=== PATIENT | male | born 1960 | race Caucasian/White ===

== ENCOUNTER 2018-04-08 20:10 | Inpatient (IN) | payer MEDICAID, SELFPAY ==
[~2018-04-08 20:10] MED LIST: ACETAMINOPHEN TAB 650MG DOSE (2X325MG) PO; ONDANSETRON 4MG/2ML VIAL (J2405) IV
[2018-04-08] MEDS: LR 1,000 ML IV (21:04)
[2018-04-08] MEDS: MORPHINE 4 MG/ML 1ML VIAL/SYRINGE (J2270) IV ×2 (21:04→23:33)
[2018-04-08] MEDS: amLODIPine 10 MG TAB PO (21:55)
[2018-04-09] MEDS: NORCO, ANEXSIA 5/325MG TABLET (HYDROcodone/ACETAMINOPHEN) PO ×2 (01:52→12:38)
[2018-04-09] MEDS: cloNIDine HCL 0.2 MG/24 HR PATCH TOP (01:53)
[2018-04-09] MEDS: LR 1,000 ML IV ×3 (04:49→20:08)
[2018-04-09] MEDS: MORPHINE 4 MG/ML 1ML VIAL/SYRINGE (J2270) IV ×5 (04:50→20:09)
[2018-04-09 08:45] LABS: BASO % 0.4 % (0.0-1.0); EOS # 0.1 10^3/uL (0.0-0.50); EOS % 1.5 % (0.0-3.0); HEMATOCRIT 44.1 % (42.0-52.0); HEMOGLOBIN 15.2 g/dl (13.5-17.5); IMMATURE GRANULOCYTE % 0.1 % (0-3.0); LYMPH # 1.3 10^3/uL (1.5-4.5); LYMPH % 17.7 % (24.0-44.0); MEAN CORPUSCULAR HEMOGLOBIN 33.1 pg (27.0-33.0); MEAN CORPUSCULAR HGB CONC 34.5 g/dl (32.0-36.5); MEAN CORPUSCULAR VOLUME 96.1 fl (80.0-96.0); MONO % 13.7 % (0.0-5.0); NEUTROPHILS # 5.1 10^3/uL (1.8-7.7); NEUTROPHILS % 66.6 % (36.0-66.0); PLATELET COUNT, AUTOMATED 210 10^3/uL (150-450); RED BLOOD COUNT 4.59 10^6/uL (4.30-6.10); RED CELL DISTRIBUTION WIDTH 12.5 % (11.5-14.5); WHITE BLOOD COUNT 7.6 10^3/uL (4.0-10.0)
[2018-04-09 09:01] LABS: ANION GAP 6 MEQ/L (8-16); BLOOD UREA NITROGEN 9 MG/DL (7-18); CALCIUM LEVEL 8.7 MG/DL (8.5-10.1); CARBON DIOXIDE LEVEL 30 MEQ/L (21-32); CHLORIDE LEVEL 101 MEQ/L (98-107); CREATININE FOR GFR 0.58 MG/DL (0.70-1.30); GLOMERULAR FILTRATION RATE > 60.0 (>56); GLUCOSE, FASTING 90 MG/DL (70-100); SODIUM LEVEL 137 MEQ/L (136-145)
[2018-04-09 09:05] LABS: LACTIC ACID SEPSIS PROTOCOL 0.8 MMOL/L (0.4-2.0)
[2018-04-09] MEDS: PANTOPRAZOLE 40MG INJ (PROTONIX) (C9113) IV (09:22)
[2018-04-09] MEDS: amLODIPine 10 MG TAB PO (09:23)
[2018-04-09] MEDS: ENOXAPARIN 40 MG/0.4 ML SYRINGE (J1650) SC (09:24)
[2018-04-09] MEDS: MIRALAX *UNIT DOSE* 17GM PACKET PO (12:37)
[2018-04-09] MEDS: BISACODYL 10 MG SUPP PR (12:37)
[2018-04-09] MEDS: DEXTROMETHORPHAN 60MG/10ML SUSP 90ML BTL(DELSYM) PO ×2 (13:45→20:09)
[2018-04-10] MEDS: LR 1,000 ML IV ×3 (05:17→21:48)
[2018-04-10] MEDS: NORCO, ANEXSIA 5/325MG TABLET (HYDROcodone/ACETAMINOPHEN) PO ×3 (05:17→20:32)
[2018-04-10] MEDS: MORPHINE 4 MG/ML 1ML VIAL/SYRINGE (J2270) IV ×3 (08:44→16:26)
[2018-04-10] MEDS: DEXTROMETHORPHAN 60MG/10ML SUSP 90ML BTL(DELSYM) PO ×2 (08:45→20:30)
[2018-04-10] MEDS: amLODIPine 10 MG TAB PO (08:49)
[2018-04-10] MEDS: PANTOPRAZOLE 40MG INJ (PROTONIX) (C9113) IV (08:49)
[2018-04-10] MEDS: ENOXAPARIN 40 MG/0.4 ML SYRINGE (J1650) SC (08:50)
[2018-04-11] MEDS: LR 1,000 ML IV ×3 (02:20→19:00)
[2018-04-11] MEDS: NORCO, ANEXSIA 5/325MG TABLET (HYDROcodone/ACETAMINOPHEN) PO ×2 (06:18→11:22)
[2018-04-11 06:58] LABS: BASO % 0.4 % (0.0-1.0); EOS # 0.1 10^3/uL (0.0-0.50); EOS % 1.5 % (0.0-3.0); HEMATOCRIT 42.5 % (42.0-52.0); HEMOGLOBIN 14.9 g/dl (13.5-17.5); IMMATURE GRANULOCYTE % 0.1 % (0-3.0); LYMPH % 14.7 % (24.0-44.0); MEAN CORPUSCULAR HGB CONC 35.1 g/dl (32.0-36.5); MEAN CORPUSCULAR VOLUME 94.2 fl (80.0-96.0); MONO # 1.1 10^3/uL (0.0-0.8); MONO % 16.3 % (0.0-5.0); NEUTROPHILS # 4.5 10^3/uL (1.8-7.7); PLATELET COUNT, AUTOMATED 226 10^3/uL (150-450); RED BLOOD COUNT 4.51 10^6/uL (4.30-6.10); RED CELL DISTRIBUTION WIDTH 12.1 % (11.5-14.5); WHITE BLOOD COUNT 6.7 10^3/uL (4.0-10.0)
[2018-04-11 07:18] LABS: ANION GAP 11 MEQ/L (8-16); BLOOD UREA NITROGEN 8 MG/DL (7-18); CALCIUM LEVEL 8.9 MG/DL (8.5-10.1); CARBON DIOXIDE LEVEL 29 MEQ/L (21-32); CHLORIDE LEVEL 94 MEQ/L (98-107); CREATININE FOR GFR 0.52 MG/DL (0.70-1.30); GLOMERULAR FILTRATION RATE > 60.0 (>56); GLUCOSE, FASTING 60 MG/DL (70-100); POTASSIUM SERUM 3.6 MEQ/L (3.5-5.1); SODIUM LEVEL 134 MEQ/L (136-145)
[2018-04-11] MEDS ORDERED: DEXTROSE 50% 50 ML SYRINGE IV (09:00)
[2018-04-11] MEDS: DEXTROMETHORPHAN 60MG/10ML SUSP 90ML BTL(DELSYM) PO ×2 (09:15→21:37)
[2018-04-11] MEDS: amLODIPine 10 MG TAB PO (09:15)
[2018-04-11] MEDS: PANTOPRAZOLE 40MG INJ (PROTONIX) (C9113) IV (09:16)
[2018-04-11] MEDS: KCL 20MEQ IN D5/0.45NS 1000ML 1,000 ML IV ×2 (09:21→20:20)
[2018-04-11] MEDS: ENOXAPARIN 40 MG/0.4 ML SYRINGE (J1650) SC (10:19)
[2018-04-11 11:49] LABS: BEDSIDE GLUCOSE 96 MG/DL (70-105)
[2018-04-11] MEDS: ceFAZolin 2 GM/D5W 50 ML IV BAG (J0690 PER 500MG) As Ordered (16:59)
[2018-04-11] MEDS ORDERED: METOCLOPRAMIDE INJ 10MG/2ML VIAL (J2765) IV (17:00)
[2018-04-11] MEDS: LIDOCAINE 1% SDV INJ 30 ML VIAL As Ordered (17:05)
[2018-04-11] MEDS: BUPIVACAINE HCL 0.25% 30 ML VIAL As Ordered (17:05)
[2018-04-11] MEDS ORDERED: PROPOFOL 200 MG/20 ML VIAL As Ordered (17:26)
[2018-04-11] MEDS ORDERED: LIDOCAINE 2% INJ 100 MG/5 ML SDV (FOR ANES.) As Ordered (17:26)
[2018-04-11] MEDS ORDERED: fentaNYL 250 MCG/5 ML INJECTION (J3010) As Ordered (17:26)
[2018-04-11] MEDS ORDERED: MIDAZOLAM INJ 2 MG/2 ML VIAL (J2250) As Ordered (17:26)
[2018-04-11] MEDS ORDERED: ROCURONIUM BROMIDE 50 MG/5 ML VIAL As Ordered ×2 (17:26→17:49)
[2018-04-11] MEDS ORDERED: ONDANSETRON 4MG/2ML VIAL (J2405) As Ordered (17:27)
[2018-04-11] MEDS ORDERED: dexameTHASONE 4 MG/ML 1ML VIAL (J1100) As Ordered ×2 (17:27)
[2018-04-11] MEDS ORDERED: GLYCOPYRROLATE INJ 0.2 MG/ML 2 ML VIAL As Ordered (17:43)
[2018-04-11] MEDS ORDERED: NEOSTIGMINE 10 MG/10 ML VIAL (J2710) As Ordered (17:43)
[2018-04-11] MEDS ORDERED: fentaNYL 100 MCG/2 ML INJECTION (J3010) As Ordered (18:48)
[2018-04-11] MEDS: fentaNYL 100 MCG/2 ML INJECTION (J3010) IV ×3 (18:50→19:11)
[2018-04-11] MEDS ORDERED: hydrALAZINE INJ 20 MG/ML VIAL IV (19:00)
[2018-04-11] MEDS ORDERED: ONDANSETRON 4MG/2ML VIAL (J2405) IV (19:00)
[2018-04-11] MEDS ORDERED: MORPHINE 4 MG/ML 1ML VIAL/SYRINGE (J2270) As Ordered (19:22)
[2018-04-11] MEDS: MORPHINE 10 MG/ML 1ML VIAL (J2270) IV ×2 (19:25→19:35)
[2018-04-11] MEDS ORDERED: KCL 20MEQ IN D5/.45NACL 1000ML As Ordered (19:54)
[2018-04-11 19:59] LABS: BEDSIDE GLUCOSE 92 MG/DL (70-105)
[2018-04-12 00:04] LABS: BEDSIDE GLUCOSE 154 MG/DL (70-105)
[2018-04-12] MEDS: MORPHINE 4 MG/ML 1ML VIAL/SYRINGE (J2270) IV (00:09)
[2018-04-12] MEDS: KCL 20MEQ IN D5/0.45NS 1000ML 1,000 ML IV ×2 (05:51→20:23)
[2018-04-12 06:57] LABS: BASO % 0.2 % (0.0-1.0); EOS % 0.2 % (0.0-3.0); HEMATOCRIT 43.5 % (42.0-52.0); HEMOGLOBIN 15.3 g/dl (13.5-17.5); IMMATURE GRANULOCYTE % 0.4 % (0-3.0); LYMPH # 0.6 10^3/uL (1.5-4.5); LYMPH % 11.7 % (24.0-44.0); MEAN CORPUSCULAR HEMOGLOBIN 32.8 pg (27.0-33.0); MEAN CORPUSCULAR HGB CONC 35.2 g/dl (32.0-36.5); MEAN CORPUSCULAR VOLUME 93.1 fl (80.0-96.0); MONO # 0.7 10^3/uL (0.0-0.8); MONO % 14.2 % (0.0-5.0); NEUTROPHILS # 3.8 10^3/uL (1.8-7.7); NEUTROPHILS % 73.3 % (36.0-66.0); PLATELET COUNT, AUTOMATED 236 10^3/uL (150-450); RED BLOOD COUNT 4.67 10^6/uL (4.30-6.10); RED CELL DISTRIBUTION WIDTH 11.9 % (11.5-14.5); WHITE BLOOD COUNT 5.2 10^3/uL (4.0-10.0)
[2018-04-12 07:09] LABS: ANION GAP 6 MEQ/L (8-16); BLOOD UREA NITROGEN 9 MG/DL (7-18); CALCIUM LEVEL 8.6 MG/DL (8.5-10.1); CARBON DIOXIDE LEVEL 31 MEQ/L (21-32); CHLORIDE LEVEL 98 MEQ/L (98-107); CREATININE FOR GFR 0.65 MG/DL (0.70-1.30); GLOMERULAR FILTRATION RATE > 60.0 (>56); GLUCOSE, FASTING 151 MG/DL (70-100); POTASSIUM SERUM 4.5 MEQ/L (3.5-5.1); SODIUM LEVEL 135 MEQ/L (136-145)
[2018-04-12] MEDS: ENOXAPARIN 40 MG/0.4 ML SYRINGE (J1650) SC (09:46)
[2018-04-12] MEDS: PANTOPRAZOLE 40MG INJ (PROTONIX) (C9113) IV (09:46)
[2018-04-12] MEDS: amLODIPine 10 MG TAB PO (09:47)
[2018-04-12] MEDS: NORCO, ANEXSIA 5/325MG TABLET (HYDROcodone/ACETAMINOPHEN) PO ×3 (10:54→20:23)
[2018-04-12] MEDS: DEXTROMETHORPHAN 60MG/10ML SUSP 90ML BTL(DELSYM) PO ×2 (12:19→20:23)
[2018-04-12] MEDS: IPRATROPIUM 0.5MG/ALBUTEROL 2.5MG INH SOL UD 3ML (DUONEB)(J7620) NEB ×2 (15:43→20:47)
[2018-04-12 18:18] LABS: BEDSIDE GLUCOSE 117 MG/DL (70-105)
[2018-04-12 23:43] LABS: BEDSIDE GLUCOSE 135 MG/DL (70-105)
[2018-04-13] MEDS: MORPHINE 4 MG/ML 1ML VIAL/SYRINGE (J2270) IV (00:12)
[2018-04-13 06:52] LABS: BASO % 0.3 % (0.0-1.0); EOS # 0.1 10^3/uL (0.0-0.50); EOS % 2.1 % (0.0-3.0); HEMATOCRIT 40.5 % (42.0-52.0); HEMOGLOBIN 14.1 g/dl (13.5-17.5); IMMATURE GRANULOCYTE % 0.3 % (0-3.0); LYMPH # 2.2 10^3/uL (1.5-4.5); LYMPH % 32.8 % (24.0-44.0); MEAN CORPUSCULAR HEMOGLOBIN 32.9 pg (27.0-33.0); MEAN CORPUSCULAR HGB CONC 34.8 g/dl (32.0-36.5); MEAN CORPUSCULAR VOLUME 94.6 fl (80.0-96.0); MONO # 1.1 10^3/uL (0.0-0.8); MONO % 16.9 % (0.0-5.0); NEUTROPHILS # 3.1 10^3/uL (1.8-7.7); NEUTROPHILS % 47.6 % (36.0-66.0); PLATELET COUNT, AUTOMATED 259 10^3/uL (150-450); RED BLOOD COUNT 4.28 10^6/uL (4.30-6.10); RED CELL DISTRIBUTION WIDTH 12.2 % (11.5-14.5); WHITE BLOOD COUNT 6.6 10^3/uL (4.0-10.0)
[2018-04-13 07:11] LABS: ANION GAP 0 MEQ/L (8-16); BLOOD UREA NITROGEN 5 MG/DL (7-18); CALCIUM LEVEL 8.4 MG/DL (8.5-10.1); CARBON DIOXIDE LEVEL 33 MEQ/L (21-32); CHLORIDE LEVEL 106 MEQ/L (98-107); CREATININE FOR GFR 0.64 MG/DL (0.70-1.30); GLOMERULAR FILTRATION RATE > 60.0 (>56); GLUCOSE, FASTING 112 MG/DL (70-100); POTASSIUM SERUM 4.7 MEQ/L (3.5-5.1); SODIUM LEVEL 139 MEQ/L (136-145)
[2018-04-13] MEDS: MOM 30ML SUSPENSION UDC PO (08:20)
[2018-04-13] MEDS: amLODIPine 10 MG TAB PO (08:21)
[2018-04-13] MEDS: ENOXAPARIN 40 MG/0.4 ML SYRINGE (J1650) SC (08:21)
[2018-04-13] MEDS: PANTOPRAZOLE 40MG INJ (PROTONIX) (C9113) IV (08:21)
[2018-04-13] MEDS: DEXTROMETHORPHAN 60MG/10ML SUSP 90ML BTL(DELSYM) PO ×2 (08:22→20:56)
[2018-04-13] MEDS: NORCO, ANEXSIA 5/325MG TABLET (HYDROcodone/ACETAMINOPHEN) PO ×3 (09:55→21:37)
[2018-04-13] MEDS: LISINOPRIL 10 MG TAB PO ×2 (11:28→20:12)
[2018-04-13 12:58] LABS: BEDSIDE GLUCOSE 103 MG/DL (70-105)
[2018-04-13] MEDS: NICOTINE 21MG/24HR 1 EA TRANSDERMAL TD (17:10)
[2018-04-14] MEDS: NORCO, ANEXSIA 5/325MG TABLET (HYDROcodone/ACETAMINOPHEN) PO (01:44)
[2018-04-14 07:31] LABS: BASO % 0.3 % (0.0-1.0); EOS # 0.1 10^3/uL (0.0-0.50); EOS % 2.1 % (0.0-3.0); HEMATOCRIT 46.1 % (42.0-52.0); HEMOGLOBIN 15.5 g/dl (13.5-17.5); IMMATURE GRANULOCYTE % 0.3 % (0-3.0); LYMPH # 0.8 10^3/uL (1.5-4.5); LYMPH % 12.7 % (24.0-44.0); MEAN CORPUSCULAR HGB CONC 33.6 g/dl (32.0-36.5); MEAN CORPUSCULAR VOLUME 98.1 fl (80.0-96.0); MONO # 0.7 10^3/uL (0.0-0.8); MONO % 10.9 % (0.0-5.0); NEUTROPHILS # 4.6 10^3/uL (1.8-7.7); NEUTROPHILS % 73.7 % (36.0-66.0); PLATELET COUNT, AUTOMATED 255 10^3/uL (150-450); RED CELL DISTRIBUTION WIDTH 12.4 % (11.5-14.5); WHITE BLOOD COUNT 6.2 10^3/uL (4.0-10.0)
[2018-04-14 07:40] LABS: ANION GAP 7 MEQ/L (8-16); BLOOD UREA NITROGEN 9 MG/DL (7-18); CALCIUM LEVEL 8.3 MG/DL (8.5-10.1); CARBON DIOXIDE LEVEL 30 MEQ/L (21-32); CHLORIDE LEVEL 102 MEQ/L (98-107); CREATININE FOR GFR 0.59 MG/DL (0.70-1.30); GLOMERULAR FILTRATION RATE > 60.0 (>56); GLUCOSE, FASTING 85 MG/DL (70-100); POTASSIUM SERUM 3.9 MEQ/L (3.5-5.1); SODIUM LEVEL 139 MEQ/L (136-145)
[2018-04-14] MEDS: NICOTINE 21MG/24HR 1 EA TRANSDERMAL TD (08:56)
[2018-04-14] MEDS: DEXTROMETHORPHAN 60MG/10ML SUSP 90ML BTL(DELSYM) PO (08:56)
[2018-04-14] MEDS: amLODIPine 10 MG TAB PO (08:56)
[2018-04-14] MEDS: ENOXAPARIN 40 MG/0.4 ML SYRINGE (J1650) SC (08:57)
[2018-04-14] MEDS: LISINOPRIL 20 MG TAB PO (08:57)
== END 2018-04-14 11:30 | disposition home or self-care (01) | DRG 224 ==
LOC: M MSPAV 20:10 → M MS4PR 04-11 16:00
PROC: 0DN84ZZ Release Small Intestine, Percutaneous Endoscopic Approach (ICD-10-PCS; principal; 2018-04-11 08:00)
DX: K56.51 Intestinal adhesions [bands], with partial obstruction (principal); J18.9 Pneumonia, unspecified organism; R04.2 Hemoptysis; J43.9 Emphysema, unspecified; R91.1 Solitary pulmonary nodule; I10 Essential (primary) hypertension; F10.10 Alcohol abuse, uncomplicated; Z79.899 Other long term (current) drug therapy; F17.200 Nicotine dependence, unspecified, uncomplicated

== ENCOUNTER 2018-05-03 06:25 | Day surgery (SDC) | payer MEDICAID ==
[2018-05-03] MEDS ORDERED: LR 1,000 ML IV ×2 (06:30)
[2018-05-03] MEDS ORDERED: LIDOCAINE 2% INJ 100 MG/5 ML SDV (FOR ANES.) As Ordered ×2 (07:16)
[2018-05-03] MEDS ORDERED: MIDAZOLAM INJ 2 MG/2 ML VIAL (J2250) As Ordered ×2 (07:16)
[2018-05-03] MEDS ORDERED: PROPOFOL 200 MG/20 ML VIAL As Ordered ×4 (07:16→07:56)
[2018-05-03] MEDS ORDERED: ROCURONIUM BROMIDE 50 MG/5 ML VIAL As Ordered ×2 (07:16)
[2018-05-03] MEDS ORDERED: fentaNYL 100 MCG/2 ML INJECTION (J3010) As Ordered ×2 (07:17)
[2018-05-03] MEDS ORDERED: dexameTHASONE 4 MG/ML 1ML VIAL (J1100) As Ordered ×2 (07:20)
[2018-05-03] MEDS: EPINEPHrine 1MG/10ML SYRINGE 1.5IN As Ordered ×2 (08:00)
[2018-05-03] MEDS: LIDOCAINE VISCOUS 2% SOLN 15ML UDC As Ordered ×2 (08:00)
[2018-05-03] MEDS: LIDOCAINE 1% MDV 20ML VIAL As Ordered ×2 (08:00)
[2018-05-03] MEDS: THROMBIN SOLN 5,000 UNITS VIAL As Ordered ×2 (08:00)
[2018-05-03] MEDS: CETACAINE SPRAY 5GM As Ordered ×2 (08:00)
[2018-05-03] MEDS ORDERED: ONDANSETRON 4MG/2ML VIAL (J2405) As Ordered ×2 (08:10)
[2018-05-03] MEDS: PHENYLEPHRINE 0.5% NASAL SPRAY 15 ML As Ordered ×2 (08:43)
== END 2018-05-03 09:20 | disposition home or self-care (01) ==
LOC: M SDC 06:25
DX: C34.11 Malignant neoplasm of upper lobe, right bronchus or lung (principal); R04.2 Hemoptysis; R91.8 Other nonspecific abnormal finding of lung field; I10 Essential (primary) hypertension; F17.210 Nicotine dependence, cigarettes, uncomplicated; J44.9 Chronic obstructive pulmonary disease, unspecified; Z79.899 Other long term (current) drug therapy
CPT/HCPCS: 31623

== ENCOUNTER → 2018-05-12 | Outpatient (CLI) | payer MEDICAID | LOC: M CARPUL 10:19 | DX: C34.11 Malignant neoplasm of upper lobe, right bronchus or lung (principal) | CPT/HCPCS: 94060 ==

== ENCOUNTER → 2018-05-24 | Outpatient (CLI) | payer OTHER, MEDICAID | LOC: M PLARAD 14:41 | DX: C34.91 Malignant neoplasm of unspecified part of right bronchus or lung (principal) | CPT/HCPCS: 78815 ==

== ENCOUNTER → 2018-06-08 | Outpatient (REF) | payer OTHER ==
[2018-06-08 13:41] LABS: PARTIAL THROMBOPLASTIN TIME 32.3 SECONDS (25.4-37.6); PROTHROMBIN TIME 12.3 SECONDS (12.1-14.4)
== END ==
LOC: M LAB REF 13:08
DX: C34.90 Malignant neoplasm of unspecified part of unspecified bronchus or lung (principal)
CPT/HCPCS: 85610

== ENCOUNTER → 2018-06-15 | Outpatient (CLI) | payer OTHER ==
[~2018-06-15] MED LIST changes: -ACETAMINOPHEN TAB 650MG DOSE (2X325MG) PO; -ONDANSETRON 4MG/2ML VIAL (J2405) IV; +PROHANCE 279.3MG/ML 15ML VIAL (A9576) As Ordered
== END ==
LOC: M RAD 17:00
DX: C34.90 Malignant neoplasm of unspecified part of unspecified bronchus or lung (principal)
CPT/HCPCS: A9576

== ENCOUNTER → 2018-06-17 | Outpatient (CLI) | payer OTHER | LOC: M ONCR 10:21 | DX: C34.11 Malignant neoplasm of upper lobe, right bronchus or lung (principal) | CPT/HCPCS: 99201 ==

== ENCOUNTER 2018-06-24 10:31 | Day surgery (SDC) | payer OTHER ==
[2018-06-24] MEDS ORDERED: LR 1,000 ML IV (10:45)
[2018-06-24] MEDS ORDERED: LIDOCAINE 2% INJ 100 MG/5 ML SDV (FOR ANES.) As Ordered (12:51)
[2018-06-24] MEDS ORDERED: PROPOFOL 200 MG/20 ML VIAL As Ordered ×2 (12:51→13:37)
[2018-06-24] MEDS ORDERED: fentaNYL 100 MCG/2 ML INJECTION (J3010) As Ordered (12:52)
[2018-06-24] MEDS ORDERED: MIDAZOLAM INJ 2 MG/2 ML VIAL (J2250) As Ordered ×2 (12:53→13:27)
[2018-06-24] MEDS: MUPIROCIN 2% OINT 22 GM TUBE TOP (13:25)
[2018-06-24] MEDS: LIDOCAINE 1% MDV 20ML VIAL As Ordered (13:38)
[2018-06-24] MEDS: HEPARIN SOD (PORCINE) 5000 UNITS/ML VIAL As Ordered (13:40)
[2018-06-24] MEDS ORDERED: ONDANSETRON 4MG/2ML VIAL (J2405) As Ordered (13:48)
[2018-06-24] MEDS ORDERED: KETOROLAC 60 MG/2 ML VIAL (J1885) As Ordered (13:48)
[2018-06-24] MEDS: BUPIVACAINE LIPOSOME/PF 1.3% 20 ML VIAL (13.3MG/ML)(EXPAREL) As Ordered (13:58)
== END 2018-06-24 14:45 | disposition home or self-care (01) ==
LOC: M SDC 10:31
DX: C34.11 Malignant neoplasm of upper lobe, right bronchus or lung (principal); Z45.2 Encounter for adjustment and management of vascular access device; R04.2 Hemoptysis; J44.9 Chronic obstructive pulmonary disease, unspecified; I10 Essential (primary) hypertension; F17.218 Nicotine dependence, cigarettes, with other nicotine-induced disorders; Z79.899 Other long term (current) drug therapy
CPT/HCPCS: 36561

== ENCOUNTER 2018-06-29 10:00 | Outpatient (RCR) | payer OTHER | END 2018-07-03 | LOC: M ONCR 10:00 | DX: C34.01 Malignant neoplasm of right main bronchus (principal) | CPT/HCPCS: 77334 ==

== ENCOUNTER → 2018-06-30 | Outpatient (CLI) | payer OTHER | LOC: M SMT 11:06 | DX: C34.90 Malignant neoplasm of unspecified part of unspecified bronchus or lung (principal) | CPT/HCPCS: 71046 ==

== ENCOUNTER → 2018-06-30 | Outpatient (REF) | payer OTHER | LOC: M LAB REF 11:25 | DX: C34.90 Malignant neoplasm of unspecified part of unspecified bronchus or lung (principal) | CPT/HCPCS: 88300 ==

== ENCOUNTER 2018-07-03 20:10 | Inpatient (IN) | payer OTHER ==
[2018-07-03] MEDS: DOCUSATE SODIUM 100 MG CAP PO (21:00)
[2018-07-03] MEDS ORDERED: ONDANSETRON 4MG/2ML VIAL (J2405) IV (21:00)
[2018-07-03] MEDS ORDERED: ACETAMINOPHEN TAB 650MG DOSE (2X325MG) PO (21:00)
[2018-07-03] MEDS: NS 1,000 ML IV (21:26)
[2018-07-03 21:38] LABS: INR 0.98; PROTHROMBIN TIME 13.1 SECONDS (12.1-14.4)
[2018-07-03] MEDS: MORPHINE 4 MG/ML 1ML VIAL/SYRINGE (J2270) IV (21:41)
[2018-07-03] MEDS: IPRATROPIUM 0.5MG/ALBUTEROL 2.5MG INH SOL UD 3ML (DUONEB)(J7620) NEB (21:53)
[2018-07-03 21:58] LABS: TROPONIN I < 0.02 NG/ML (< 0.10)
[2018-07-03] MEDS: VANCOMYCIN HCL 1,000 MG, VIAL MATE ADAPTER 1 EACH in D5W 250 ML IV (22:32)
[2018-07-03] MEDS: methylPREDNISolone INJ 125 MG/2 ML VIAL (J2930) IV (22:33)
[2018-07-04] MEDS: CEFEPIME HCL 1 GM in D5W MINI-BAG PLUS 50 ML IV ×2 (00:09→14:24)
[2018-07-04 00:57] LABS: CREATININE FOR GFR 0.55 MG/DL (0.70-1.30); GLOMERULAR FILTRATION RATE > 60.0 (>56)
[2018-07-04] MEDS: IPRATROPIUM 0.5MG/ALBUTEROL 2.5MG INH SOL UD 3ML (DUONEB)(J7620) NEB ×6 (04:00→20:02)
[2018-07-04] MEDS: VANCOMYCIN HCL 1,000 MG, VIAL MATE ADAPTER 1 EACH in D5W 250 ML IV (04:02)
[2018-07-04] MEDS: MORPHINE 4 MG/ML 1ML VIAL/SYRINGE (J2270) IV ×2 (04:16→21:14)
[2018-07-04 04:39] LABS: HEMATOCRIT 39.3 % (42.0-52.0); HEMOGLOBIN 13.3 g/dl (13.5-17.5); MEAN CORPUSCULAR HEMOGLOBIN 32.5 pg (27.0-33.0); MEAN CORPUSCULAR HGB CONC 33.8 g/dl (32.0-36.5); MEAN CORPUSCULAR VOLUME 96.1 fl (80.0-96.0); PLATELET COUNT, AUTOMATED 342 10^3/uL (150-450); RED BLOOD COUNT 4.09 10^6/uL (4.30-6.10); RED CELL DISTRIBUTION WIDTH 13.2 % (11.5-14.5)
[2018-07-04 04:56] LABS: MAGNESIUM LEVEL 2.2 MG/DL (1.8-2.4)
[2018-07-04] MEDS: methylPREDNISolone INJ 125 MG/2 ML VIAL (J2930) IV ×2 (05:29→14:24)
[2018-07-04] MEDS: NS 1,000 ML IV (08:45)
[2018-07-04] MEDS: amLODIPine 10 MG TAB PO (08:45)
[2018-07-04] MEDS: DOCUSATE SODIUM 100 MG CAP PO ×2 (08:47→20:08)
[2018-07-04] MEDS: LevoFLOXacin IV 500 MG in APPROPRIATE DILUENT 1 EA IV (10:40)
[2018-07-04] MEDS ORDERED: ALBUTEROL 90 MCG/ACT 8GM HFA INHALER INH (18:15)
[2018-07-04] MEDS: LISINOPRIL 20 MG TAB PO (20:08)
[2018-07-04 22:13] LABS: INR 0.96; PROTHROMBIN TIME 12.9 SECONDS (12.1-14.4)
[2018-07-05] MEDS: MORPHINE 4 MG/ML 1ML VIAL/SYRINGE (J2270) IV ×2 (01:48→06:21)
[2018-07-05] MEDS: AZITHROMYCIN INJ 500 MG, VIAL MATE ADAPTER 1 EACH in D5W 250 ML IV (02:57)
[2018-07-05] MEDS: IPRATROPIUM 0.5MG/ALBUTEROL 2.5MG INH SOL UD 3ML (DUONEB)(J7620) NEB ×6 (07:18→23:46)
[2018-07-05 07:50] LABS: HEMATOCRIT 35.6 % (42.0-52.0); HEMOGLOBIN 12.2 g/dl (13.5-17.5); MEAN CORPUSCULAR HEMOGLOBIN 32.7 pg (27.0-33.0); MEAN CORPUSCULAR HGB CONC 34.3 g/dl (32.0-36.5); MEAN CORPUSCULAR VOLUME 95.4 fl (80.0-96.0); PLATELET COUNT, AUTOMATED 328 10^3/uL (150-450); RED BLOOD COUNT 3.73 10^6/uL (4.30-6.10); WHITE BLOOD COUNT 14.8 10^3/uL (4.0-10.0)
[2018-07-05 08:02] LABS: MAGNESIUM LEVEL 2.4 MG/DL (1.8-2.4)
[2018-07-05 08:10] LABS: INR 0.98; PROTHROMBIN TIME 13.1 SECONDS (12.1-14.4)
[2018-07-05] MEDS: DOCUSATE SODIUM 100 MG CAP PO ×2 (08:39→20:22)
[2018-07-05] MEDS: predniSONE 20 MG TAB PO (08:39)
[2018-07-05] MEDS: amLODIPine 10 MG TAB PO (08:39)
[2018-07-05] MEDS: PERCOCET 5MG/325MG TAB PO ×3 (10:08→20:24)
[2018-07-05] MEDS: LISINOPRIL 20 MG TAB PO (20:23)
[2018-07-06] MEDS: PERCOCET 5MG/325MG TAB PO ×3 (00:25→12:55)
[2018-07-06] MEDS: AZITHROMYCIN INJ 500 MG, VIAL MATE ADAPTER 1 EACH in D5W 250 ML IV (00:25)
[2018-07-06] MEDS: IPRATROPIUM 0.5MG/ALBUTEROL 2.5MG INH SOL UD 3ML (DUONEB)(J7620) NEB ×3 (03:36→11:28)
[2018-07-06 07:43] LABS: HEMATOCRIT 40.3 % (42.0-52.0); HEMOGLOBIN 13.3 g/dl (13.5-17.5); MEAN CORPUSCULAR HEMOGLOBIN 32.2 pg (27.0-33.0); MEAN CORPUSCULAR VOLUME 97.6 fl (80.0-96.0); PLATELET COUNT, AUTOMATED 350 10^3/uL (150-450); RED BLOOD COUNT 4.13 10^6/uL (4.30-6.10); RED CELL DISTRIBUTION WIDTH 13.2 % (11.5-14.5)
[2018-07-06 07:58] LABS: MAGNESIUM LEVEL 2.3 MG/DL (1.8-2.4)
[2018-07-06] MEDS: amLODIPine 10 MG TAB PO (08:20)
[2018-07-06] MEDS: DOCUSATE SODIUM 100 MG CAP PO (08:20)
[2018-07-06] MEDS: predniSONE 20 MG TAB PO (08:21)
[2018-07-08 00:09] LABS: LEGIONELLA ANTIGEN URINE Negative (Negative)
== END 2018-07-06 14:22 | disposition home or self-care (01) | DRG 136 ==
LOC: M ICU 20:10 → M MS4PR 07-04 20:26
PROVIDERS: Hospitalist
DX: C34.90 Malignant neoplasm of unspecified part of unspecified bronchus or lung (principal); R78.81 Bacteremia; J44.9 Chronic obstructive pulmonary disease, unspecified; R04.2 Hemoptysis; I10 Essential (primary) hypertension; Z79.899 Other long term (current) drug therapy; F17.200 Nicotine dependence, unspecified, uncomplicated; Z66 Do not resuscitate

== ENCOUNTER → 2018-08-03 | Outpatient (RCR) | payer OTHER ==
--- NOTE | 2018-07-07 12:55 | RADONC ---
RADIATION ONCOLOGY PROGRESS NOTE DATE OF SERVICE: 07/05/2018 CHART NUMBER: [id number]. DIAGNOSIS: Right lung cancer. STAGE: IIIA, T4N1M0 versus stage IIIB, T4N2M0. ECOG PERFORMANCE STATUS : 1. PROGRESS NOTE: I apparently received an official consultation request on Mr. Wiley, which was sent to the old fax machine in the [facility]. I am well aware of Mr. Wiley, and we undertook a full history and physical consultation on 06/17/2018. Following that, the patient was brought in for CT simulation, which was undertaken without difficulty. Treatment planning for 3-D conformal therapy had also been completed and approved. The insurance authorizations were done. The patient has been brought down today for initiation of radiation and successfully underwent his first fraction of RT for a dose of 200 cGy. The patient tolerated his first fraction without difficulty. Radiation is scheduled to continue on a daily basis. REVIEW OF SYSTEMS: The patient's review of systems today is unchanged. PHYSICAL EXAMINATION: The patient's skin clearly shows no evidence of radiation change present, and the remainder of the physical is also unchanged. Thank you for submitting a request for consultation, although I would be happy to refer you to the consultation note done on 06/17/2018. As noted above, the patient is well-known to our department and is being seen on a daily basis. If I could be of any further assistance or provide you with any information, please feel free to contact us at any time. As always, with warm regards. Abraham RICO
--- NOTE | 2018-07-13 09:51 | RADONC ---
RADIATION ONCOLOGY PROGRESS NOTE DATE: 07/11/2018 CHART #: [id number] Mr. Wiley is presently at a dose of 1000 cGy to his right lung and is tolerating treatments quite well at this point with no complaints related to his radiation therapy. He is having no increased difficulty swallowing or breathing. REVIEW OF SYSTEMS: The patient's review of systems is noncontributory. Denies nausea, vomiting, fevers, chills, night sweats, diplopia, headaches, anxiety or depression, anorexia, weight loss, visual disturbances, chest pain, urinary or bowel difficulties, bone pain, or neurological problems. PHYSICAL EXAMINATION: The patient's skin is in good condition with no evidence of radiation change present. The remainder of his physical exam remains unchanged as well. Mr. Wiley is tolerating treatments quite well and radiation will continue as scheduled.
--- NOTE | 2018-07-19 08:44 | RADONC ---
RADIATION ONCOLOGY PROGRESS NOTE DATE: 07/18/2018 CHART NUMBER: [id number] Mr. Wiley is presently at a dose of 2000 cGy to his right lung and is complaining of pain upon swallowing that is keeping him up at night. Other than that, he is having no problems with his radiation. The patient's review of systems is positive for pain and difficulty sleeping but is otherwise noncontributory. Denies nausea, vomiting, fevers, chills, night sweats, diplopia, headaches, anxiety or depression, anorexia, weight loss, visual disturbances, chest pain, urinary or bowel difficulties, bone pain, or neurological problems. PHYSICAL EXAMINATION The patient's skin is in excellent condition with no evidence of moist or dry desquamation. The remainder of his physical exam remains unchanged. Mr. Wiley is tolerating treatments quite well and radiation will continue as scheduled. I have renewed his Percocet prescription for 5 mg / 325, I have given him 40 pills. The patient says he is using them just at night to sleep and this should last him through the end of treatment.
--- NOTE | 2018-07-26 11:03 | RADONC ---
RADIATION ONCOLOGY PROGRESS NOTE DATE: 07/25/2018 CHART NUMBER: [id number] Mr. Wiley is presently at dose of 3000 cGy to his right lung and continues to complain of pain requesting more pain pills. He tells me he is only using one at night, perhaps occasionally one in the morning to help him sleep. He has no other complaints at this time related to his radiation therapy or disease other than some nauseousness and loss of appetite. PHYSICAL EXAMINATION: The patient's skin is in excellent condition. His weight has actually increased total of 3 pounds since consultation. The remainder of his physical exam remains unchanged. I explained to the patient that I have already given him 60 Percocets in the past 2-1/2 weeks. He therefore is taking more than just one at night. I do not wish him to be in pain and therefore I have renewed his Percocets and given him 60 pills. I let him know that expected this last throughout the course of treatment. Radiation will continue as scheduled.
--- NOTE | 2018-08-02 09:56 | RADONC ---
RADIATION ONCOLOGY PROGRESS NOTE DATE: 08/01/2018 CHART NUMBER: [id number] Mr. Wiley, with a diagnosis of right lung carcinoma, is currently receiving local regional radiotherapy and is tolerating his therapy reasonably well at a dose of 4000 cGy of an anticipated 6800 cGy. REVIEW OF SYSTEMS He denies any nausea, vomiting, but does experience some minor odynophagia and dysphagia. His energy level is slightly diminished but he is still able to maintain most day-to-day activities without any alteration of his lifestyle. He has tried swallowing yogurt to ameliorate the minor dysphagia with no relief. EXAMINATION FINDINGS: Skin within the irradiated volume shows neither erythema nor desquamation. There is no palpable peripheral lymphadenopathy. Lungs are distant bilaterally. The remainder of the physical examination is unchanged. IMPRESSION: Tolerating therapy reasonably well. PLAN: Treatments to continue.
[~2018-08-03] MED LIST changes: +ACET1TAB55 PO; +AMLO10TA4 PO; +CEFU50TA PO; +DELS30LI4 PO; +IPRA0.00 INH; +IPRA0.00 NEB; +LIDO1SOL7 PO; +LISI-538 PO; +NEBUMIS2 XX; +NICO21PAT TD; +NORCOTAB PO; +ONDA8TAB7 PO; +PATIENT COMMENTS; +PERC5TAB12 PO; +PRED10PA2 PO; +PRED10TA2 PO; +PROC10TA4 PO; -PROHANCE 279.3MG/ML 15ML VIAL (A9576) As Ordered; +SUCR1SS PO; +SYMB16INH INH; +VENTAER INH
== END ==
LOC: M ONCR 07-05 14:30
PROVIDERS: ATTEND Radiology Radiation Oncology
DX: C34.01 Malignant neoplasm of right main bronchus (principal)

== ENCOUNTER 2018-08-04 10:27 | Outpatient (RCR) | payer OTHER | END 2018-09-02 | LOC: M ONCR 08-15 10:14 | DX: C34.01 Malignant neoplasm of right main bronchus (principal) | CPT/HCPCS: 77336 ==

== ENCOUNTER → 2018-08-17 | Outpatient (CLI) | payer OTHER ==
[~2018-08-17] MED LIST changes: -ACET1TAB55 PO; -AMLO10TA4 PO; -CEFU50TA PO; -DELS30LI4 PO; -IPRA0.00 INH; -IPRA0.00 NEB; +ISOVUE-370 76% 100ML VIAL (Q9967) As Ordered; -LIDO1SOL7 PO; -LISI-538 PO; -NEBUMIS2 XX; -NICO21PAT TD; -NORCOTAB PO; -ONDA8TAB7 PO; -PATIENT COMMENTS; -PERC5TAB12 PO; -PRED10PA2 PO; -PRED10TA2 PO; -PROC10TA4 PO; -SUCR1SS PO; -SYMB16INH INH; -VENTAER INH
== END ==
LOC: M RAD 16:50
DX: C34.90 Malignant neoplasm of unspecified part of unspecified bronchus or lung (principal); R13.10 Dysphagia, unspecified; J44.9 Chronic obstructive pulmonary disease, unspecified; J43.9 Emphysema, unspecified
CPT/HCPCS: Q9967

== ENCOUNTER → 2018-09-23 | Outpatient (CLI) | payer OTHER ==
[~2018-09-23] MED LIST changes: +ACET1TAB55 PO; +AMLO10TA5 PO; +CEFU50TA PO; +DELS30LI4 PO; +IPRA0.00 INH; +IPRA0.00 NEB; -ISOVUE-370 76% 100ML VIAL (Q9967) As Ordered; +LIDO1SOL7 PO; +LISI-538 PO; +NEBUMIS2 XX; +NICO21PAT TD; +NORCOTAB PO; +ONDA8TAB7 PO; +PATIENT COMMENTS; +PERC5TAB12 PO; +PRED10PA2 PO; +PRED10TA2 PO; +PROC10TA4 PO; +SUCR1SS PO; +SYMB16INH INH; +VENTAER INH
--- NOTE | 2018-09-24 08:24 | REP ---
Esophagram: Single contrast study. History: Odynophagia. Dysphasia. Status post chemo radiation therapy for lung carcinoma. Findings: The initial PA chest x-ray shows an [id number]-Tuwu catheter in place via the left side. Mediastinum is not widened. Heart size is normal. Lung frederick are clear. There are old healed rib fractures noted on the left. Degenerative changes are visible in the thoracic spine. There are clips in the left upper quadrant of the abdomen. Esophagram images demonstrate no oral pharyngeal phase discoordination. The thoracic esophagus is normal in course and caliber and smooth in contour. No ulceration is seen. No stricture or mass lesion is observed. No extrinsic mass effect is seen. Reflux was not witnessed during examination. Impression: No morphologic abnormality. Fluoroscopy time was 0.4 minutes. Electronically Signed by Lukasz Coreas MD 09/24/2018 08:16 A
== END ==
LOC: M RAD 10:14
PROVIDERS: ATTEND Nurse Practitioner Family
DX: R13.10 Dysphagia, unspecified (principal); Z85.118 Personal history of other malignant neoplasm of bronchus and lung; R51 Headache; Z92.21 Personal history of antineoplastic chemotherapy; Z92.3 Personal history of irradiation

== ENCOUNTER 2018-10-26 09:48 | Day surgery (SDC) | payer OTHER ==
[~2018-10-26] VITALS: Ht 182.9 cm; Wt 63.9 kg
[~2018-10-26 09:48] MED LIST changes: +LIDOCAINE 2% INJ 100 MG/5 ML SDV (FOR ANES.) As Ordered ONE; +LIDVISCBTL PO; +MAGICMW SSP; +NS 1,000 ML IV ONE; +PROPOFOL 200 MG/20 ML VIAL As Ordered ONE
--- NOTE | 2018-10-26 11:56 | ROOR ---
Patient Name: Julius Wiley Procedure Date: 10/26/2018 11:22 AM Date of : 1960 Age: 58 Room: [facility] Gender: Male Note Status: Finalized Procedure: Upper GI endoscopy Indications: Dysphagia Providers: Ulisses White MD Referring MD: Shira Orellana Requesting Provider: Medicines: Monitored Anesthesia Care Complications: No immediate complications. Procedure: Pre-Anesthesia Assessment: - Prior to the procedure, a History and Physical was performed, and patient medications and allergies were reviewed. The patient is competent. The risks and benefits of the procedure and the sedation options and risks were discussed with the patient. All questions were answered and informed consent was obtained. Patient identification and proposed procedure were verified by the physician, the nurse and the associate professor of english in the endoscopy suite. Mental Status Examination: alert and oriented. Airway Examination: normal oropharyngeal airway and neck mobility. Respiratory Examination: clear to auscultation. CV Examination: normal. Prophylactic Antibiotics: The patient does not require prophylactic antibiotics. Prior Anticoagulants: The patient has taken no previous anticoagulant or antiplatelet agents. ASA Grade Assessment: III - A patient with severe systemic disease. After reviewing the risks and benefits, the patient was deemed in satisfactory condition to undergo the procedure. The anesthesia plan was to use monitored anesthesia care (MAC). Immediately prior to administration of medications, the patient was re-assessed for adequacy to receive sedatives. The heart rate, respiratory rate, oxygen saturations, blood pressure, adequacy of pulmonary ventilation, and response to care were monitored throughout the procedure. The physical status of the patient was re-assessed after the procedure. The Endoscope was introduced through the mouth, and advanced to the third part of duodenum. The upper GI endoscopy was somewhat difficult due to presence of food. Successful completion of the procedure was aided by performing the maneuvers documented (below) in this report. The patient tolerated the procedure well. Findings: There was circumferential mucosal inflammation with breakdown of the normal mucosal lining, mild contact bleeding from 25 to 27 cms. There is a food bolus stuck at the area above the swelling (looks old). Rest of esophagus without thickening, swelling, narrowing, This was biopsied with a cold forceps for histology. Scattered mild inflammation characterized by congestion (edema) was found in the gastric antrum. The examined duodenum was normal. Impression: - LA Grade D erosive esophagitis. Biopsied. - Chronic gastritis. - Normal examined duodenum. Recommendation: - Use Viscous Lidocaine at 2% 5 mL PO q 6 hrs for 2 weeks. - Nystatin suspension 200,000 units PO QID for 1 week. - Nystatin suspension 100,000 units PO QID for 3 weeks. Ulisses White MD Ulisses White MD 10/26/2018 11:55:53 AM This report has been signed electronically. Number of Addenda: 0 Note Initiated On: 10/26/2018 11:22 AM Estimated Blood Loss: Estimated blood loss was minimal.
[2018-10-26 12:13] VITALS: BP 124/72
[2018-11-04] MEDS ORDERED: LISI-538 PO (11:21)
== END 2018-10-26 12:23 | disposition home or self-care (01) ==
LOC: M OPP 09:48
PROVIDERS: ATTEND Surgery
DX: K20.8 Other esophagitis (principal); K29.50 Unspecified chronic gastritis without bleeding; R07.9 Chest pain, unspecified; R13.10 Dysphagia, unspecified; F17.210 Nicotine dependence, cigarettes, uncomplicated; Z85.118 Personal history of other malignant neoplasm of bronchus and lung; Z92.3 Personal history of irradiation; Z92.21 Personal history of antineoplastic chemotherapy

== ENCOUNTER → 2018-10-28 | Outpatient (CLI) | payer OTHER ==
[~2018-10-28] MED LIST changes: +GASTROGRAFIN SOLUTION 30ML (Q9963) As Ordered ONE; +ISOVUE-370 76% 100ML VIAL (Q9967) As Ordered ONE; -LIDOCAINE 2% INJ 100 MG/5 ML SDV (FOR ANES.) As Ordered ONE; -NS 1,000 ML IV ONE; -PROPOFOL 200 MG/20 ML VIAL As Ordered ONE
--- NOTE | 2018-10-28 10:23 | REP ---
CT PULMONARY ANGIOGRAM: With IV contrast. HISTORY: Non-small cell lung carcinoma. Chest pain with shortness of breath. Question PE versus metastasis. COMPARISON STUDIES: Comparison chest CT study August 17, 2018. CONTRAST DOSE: 100 mL of Isovue [address] TECHNIQUE: Helical scanning is acquired and overlapping 1.5 mm and contiguous 3 mm axial images are reformatted. In addition, maximum intensity projection and multiplanar re-formation images are generated in sagittal and coronal imaging projections. CT PULMONARY ANGIOGRAPHIC FINDINGS: There is good opacification of the pulmonary arterial tree. Axial, maximal intensity projection, and multiplanar re-formation images show no evidence of pulmonary arterial filling defect or vessel cutoff to suggest pulmonary embolism. The thoracic aorta enhances homogeneously and is normal in caliber and course. There is no evidence of aneurysm or dissection. The patient is status post splenectomy with regenerative nodules in the left upper quadrant adjacent to post splenectomy surgical clips as seen previously. No adrenal gland nodule or mass is seen on either side. There is a 9 x 16 mm pleural-based nodular opacity in the right lower lobe of the lung visible on axial CT image number 63 of 128 in series 402 of today's study. This it is a new finding. In addition, today's study demonstrates patchy mixed interstitial and alveolar consolidation in the right upper lobe. This is more extensive than on the August 17, 2018 study. It is not the typical pattern of lymphangitic spread, however, the fact that it is similar and more extensive than changes seen August 17, 2018 raised the question of progression in the lung frederick. Also noted are two new areas of concern in the liver. In the right lobe high near the dome of the diaphragm, there is a 2.6 cm low density lesion and a nearby 1.6 cm low density lesion which are new from April 08, 2018 and August 17, 2018 prior studies. There is also an ill-defined low density lesion in the posterior segment right lobe 1.5 cm in diameter. IMPRESSION: No CT evidence of pulmonary embolism. Progressive infiltrate pattern in the right upper lobe may be neoplastic or conceivably inflammatory. There is a new pleural-based pulmonary nodule in the right lower lobe. There are three new small hypodense liver mass lesions which must be considered suspicious for metastatic disease. Electronically Signed by Lukasz Coreas MD 10/28/2018 10:41 A
--- NOTE | 2018-10-28 10:38 | REP ---
CT ABDOMEN AND PELVIS WITH IV AND ORAL CONTRAST: HISTORY: Non-small cell lung carcinoma. CT CONTRAST DOSE: 100 mL of intravenous Isovue 370. Comparison CT study is from April 08, 2018. FINDINGS: There are multiple new heterogeneous peripherally enhancing hepatic metastatic lesions. These range in size up to 2.9 cm and are seen distributed in the right lobe and left lobe. No pancreatic abnormality is observed. The patient is status post splenectomy with regenerated splenic nodules in the left upper quadrant. No adrenal lesion is seen. No renal masses observed. The kidneys enhance symmetrically and are morphologically intact. No retroperitoneal adenopathy is seen. Small and large intestinal bowel loops are unremarkable. Seminal vesicles prostate and urinary bladder are unremarkable. No abdominal wall defect is seen. Bone window settings show no bony destructive lesion. There is a unilateral L5 spondylolysis on the right. Advanced degenerative spondylosis changes are noted. IMPRESSION: Multiple new liver metastases. Electronically Signed by Lukasz Coreas MD 10/28/2018 10:42 A
== END ==
LOC: M RAD 07:35
PROVIDERS: ATTEND Internal Medicine Medical Oncology
DX: C34.90 Malignant neoplasm of unspecified part of unspecified bronchus or lung (principal); C78.7 Secondary malignant neoplasm of liver and intrahepatic bile duct
CPT/HCPCS: 71275; 74177; Q9963; Q9967

== ENCOUNTER → 2018-11-16 | Outpatient (CLI) | payer OTHER ==
[~2018-11-16] MED LIST changes: +FENT12DI8 TOP; -GASTROGRAFIN SOLUTION 30ML (Q9963) As Ordered ONE; -ISOVUE-370 76% 100ML VIAL (Q9967) As Ordered ONE; +LIDOCAINE 1% MDV 20ML VIAL As Ordered ONE
--- NOTE | 2018-11-17 09:20 | REP ---
ULTRASOUND-GUIDED LIVER BIOPSY The procedure was performed under the direct supervision of Dr. ibrahim. The patient has a history of three small hypodense liver mass lesions seen on a previous CT scan dated 10/28/2018. The risks and benefits of the procedure were explained to the patient and informed consent was obtained. A lesion in the left lobe of the liver was localized using ultrasound guidance. The skin was prepped and draped in a sterile fashion. 1% lidocaine was used as a local anesthetic. Using ultrasound guidance a 19/20 gauge coaxial needle biopsy system was inserted and advanced into the mass. Five core biopsy samples were obtained and sent to lab. The patient tolerated the procedure well and there were no immediate complications. After the appropriate amount of monitored convalescence the patient was discharged from the department. Reviewed by ELDA Alvarado 11/16/2018 05:06 P Electronically Signed by Edy Ibrahim MD 11/17/2018 09:11 A
== END ==
LOC: M RADPRO 10:42
PROVIDERS: ATTEND Internal Medicine Medical Oncology
DX: C22.9 Malignant neoplasm of liver, not specified as primary or secondary (principal); Z85.118 Personal history of other malignant neoplasm of bronchus and lung; Z79.899 Other long term (current) drug therapy

== ENCOUNTER 2019-01-06 08:26 | Day surgery (SDC) | payer OTHER ==
[~2019-01-06] VITALS: Ht 182.9 cm; Wt 65.8 kg
[~2019-01-06 08:26] MED LIST changes: +HYDR-3715 PO; -LIDO1SOL7 PO; +LIDO1SOL8 PO; -LIDOCAINE 1% MDV 20ML VIAL As Ordered ONE; -NORCOTAB PO; +NS 1,000 ML IV ONE
[2019-01-06] MEDS ORDERED: PROPOFOL 200 MG/20 ML VIAL As Ordered ONE ×2 (09:48→09:51)
[2019-01-06] MEDS ORDERED: LIDOCAINE 2% INJ 100 MG/5 ML SDV (FOR ANES.) As Ordered ONE (09:48)
--- NOTE | 2019-01-06 10:04 | ROOR ---
Patient Name: Julius Wiley Procedure Date: 01/06/2019 9:42 AM Date of : 1960 Age: 58 Room: [facility] Gender: Male Note Status: Finalized Procedure: Upper GI endoscopy Indications: Esophageal dysphagia, Follow-up of esophageal stricture, Chest pain (non cardiac) Providers: Ulisses White MD Referring MD: Xochitl Gilbert MD Requesting Provider: Medicines: Monitored Anesthesia Care Complications: No immediate complications. Procedure: Pre-Anesthesia Assessment: - Prior to the procedure, a History and Physical was performed, and patient medications and allergies were reviewed. The patient is competent. The risks and benefits of the procedure and the sedation options and risks were discussed with the patient. All questions were answered and informed consent was obtained. Patient identification and proposed procedure were verified by the physician, the nurse and the semi truck driver in the endoscopy suite. Mental Status Examination: alert and oriented. Airway Examination: normal oropharyngeal airway and neck mobility. Respiratory Examination: clear to auscultation. CV Examination: normal. Prophylactic Antibiotics: The patient does not require prophylactic antibiotics. Prior Anticoagulants: The patient has taken no previous anticoagulant or antiplatelet agents. ASA Grade Assessment: III - A patient with severe systemic disease. After reviewing the risks and benefits, the patient was deemed in satisfactory condition to undergo the procedure. The anesthesia plan was to use monitored anesthesia care (MAC). Immediately prior to administration of medications, the patient was re-assessed for adequacy to receive sedatives. The heart rate, respiratory rate, oxygen saturations, blood pressure, adequacy of pulmonary ventilation, and response to care were monitored throughout the procedure. The physical status of the patient was re-assessed after the procedure. The Endoscope was introduced through the mouth, and advanced to the second part of duodenum. The upper GI endoscopy was accomplished without difficulty. The patient tolerated the procedure well. Findings: Two cratered esophageal ulcers with no bleeding and no stigmata of recent bleeding were found 30 to 32 cm from the incisors. The largest lesion was 5 mm in largest dimension. Estimated blood loss: none. Scattered minimal inflammation characterized by granularity was found in the gastric antrum. The ampulla, duodenal bulb, first portion of the duodenum and second portion of the duodenum were normal. A small hiatal hernia was present. Impression: - Non-bleeding esophageal ulcers. - Mucosal changes suspicious for gastritis. - Normal ampulla, duodenal bulb, first portion of the duodenum and second portion of the duodenum. - No specimens collected. - Previous area of inflammation seems improved, I was able to get through the area without difficulty; thus I did not need to dilate it. there are 2 chronic appearing ulcers on the wall of the esophagus with whitich plaque/fibrin covering it and slight friability of tissues around it but no active bleeding. Beyond the area, appears normal esophagus, prior to this area esophagus likewise is normal. Recommendation: - Use sucralfate suspension 1 gram PO BID indefinitely. Ulisses White MD Ulisses White MD 01/06/2019 10:04:19 AM Electronically signed by Ulisses White MD Number of Addenda: 0 Note Initiated On: 01/06/2019 9:42 AM Estimated Blood Loss: Estimated blood loss: none.
[2019-01-06 10:20] VITALS: BP 149/82
[2019-01-11] MEDS ORDERED: FENT12DI8 TOP (09:31)
== END 2019-01-06 11:06 | disposition home or self-care (01) ==
LOC: M SDC 08:26
PROVIDERS: ATTEND Surgery
DX: K22.10 Ulcer of esophagus without bleeding (principal); K31.89 Other diseases of stomach and duodenum; R13.14 Dysphagia, pharyngoesophageal phase; K22.2 Esophageal obstruction; R07.89 Other chest pain; I10 Essential (primary) hypertension; C34.11 Malignant neoplasm of upper lobe, right bronchus or lung; C78.7 Secondary malignant neoplasm of liver and intrahepatic bile duct; F41.9 Anxiety disorder, unspecified; Z79.899 Other long term (current) drug therapy; J44.9 Chronic obstructive pulmonary disease, unspecified; F17.210 Nicotine dependence, cigarettes, uncomplicated; Z92.3 Personal history of irradiation; Z92.21 Personal history of antineoplastic chemotherapy

== ENCOUNTER → 2019-03-06 | Outpatient (CLI) | payer OTHER ==
[~2019-03-06] MED LIST changes: +GASTROGRAFIN SOLUTION 30ML (Q9963) As Ordered ONE; +ISOVUE-370 76% 100ML VIAL (Q9967) As Ordered ONE; +LEVO750T13 PO; -NS 1,000 ML IV ONE; +OXYC1TAB15 PO; +PRED50TA PO
--- NOTE | 2019-03-08 09:10 | REP ---
Clinical: History of lung cancer for restaging. Technique: Axial contrast enhanced images from the thoracic inlet to the upper abdomen with coronal and sagittal re-formations using 100 ml Isovue 370 intravenous contrast material. Comparison: 10/28/2018, 08/17/2018 Findings: Somewhat triangular area of consolidation/mass identified in the right upper lung zone measuring roughly 4.5 x 2.9 cm extending from the right hilum to the subpleural space with surrounding areas of smaller patchy infiltrates and loculated apical effusion. A smaller area of atelectasis/consolidation and pleural reaction is also identified along the posterior right mid lung zone. These findings represent new areas of disease and may reflect recurrent malignancy. Scattered chronic interstitial changes as well as scattered bilateral bullae are again noted and essentially unchanged. No acute process identified involving the left hemithorax. No significant mediastinal or hilar adenopathy noted. Further evaluation of the mediastinum demonstrates normal thoracic aorta, pulmonary vasculature and heart/pericardium. Atherosclerotic changes to the coronary arteries cannot be excluded. No pericardial effusion. Osseous structures demonstrate degenerative changes without focal abnormality. Impression: 1. New areas of consolidation/mass and small suspected loculated pleural effusion and pleural reaction in the right mid to upper lung zone are concerning for scattered pneumonia versus recurrence. Electronically Signed by Quinten Alfaro MD 03/08/2019 09:02 A
--- NOTE | 2019-03-08 09:16 | REP ---
Clinical: History of lung cancer for restaging. Technique: Axial contrast enhanced images from the lung bases to the pubic symphysis with coronal and sagittal re-formations using oral (per protocol) 100 ml Isovue 370 intravenous contrast material. Comparison: 10/28/2018 Findings: Previously identified liver metastases appear to have decreased in size and no new lesions are identified on current examination. Splenules in the left upper quadrant remain stable. Pancreas, gallbladder, bilateral adrenal glands and kidneys are normal. The enteric system is without obstruction or acute inflammatory process. Evaluation of the pelvis demonstrates normal bladder and age appropriate prostate/seminal vesicles. No ascites. No free air. No significant intraperitoneal or retroperitoneal adenopathy noted. Atherosclerotic changes to the aorta and vasculature without aneurysm or dissection. Musculoskeletal structures demonstrate degenerative changes without focal osseous abnormality. Impression: 1. Previously identified liver metastases appear to be decreased in size and no new lesions identified. 2. No further acute abdominopelvic pathology appreciated. Specifically, no ascites, focal inflammatory stranding, or adenopathy is appreciated. Electronically Signed by Quinten Alfaro MD 03/08/2019 09:07 A
== END ==
LOC: M RAD 08:35
PROVIDERS: ATTEND Internal Medicine Medical Oncology
DX: C34.90 Malignant neoplasm of unspecified part of unspecified bronchus or lung (principal); J43.9 Emphysema, unspecified; C78.7 Secondary malignant neoplasm of liver and intrahepatic bile duct
CPT/HCPCS: 71260; 74177; Q9963; Q9967

== ENCOUNTER 2019-06-13 17:57 | Emergency (ER) | payer OTHER ==
[~2019-06-13 17:57] MED LIST changes: -GASTROGRAFIN SOLUTION 30ML (Q9963) As Ordered ONE; -ISOVUE-370 76% 100ML VIAL (Q9967) As Ordered ONE
[2019-06-13] MEDS ORDERED: ASPIRIN 81 MG CHEW TABLET PO ONE (18:30)
[2019-06-13] MEDS ORDERED: METOPROLOL TART 50 MG TAB PO ONE (18:30)
[2019-06-13] MEDS ORDERED: NS 1,000 ML IV ONE (18:30)
[2019-06-13] MEDS: METOPROLOL 5 MG/5 ML VIAL IV SCH ×3 (18:34→19:07)
[2019-06-13 18:51] LABS: BASO % 0.1 % (0.0-1.0); EOS % 0.1 % (0.0-3.0); HEMATOCRIT 34.6 % (42.0-52.0); HEMOGLOBIN 11.9 g/dl (13.5-17.5); LYMPH # 0.4 10^3/uL (1.5-5.0); LYMPH % 2.9 % (24.0-44.0); MEAN CORPUSCULAR HEMOGLOBIN 31.9 pg (27.0-33.0); MEAN CORPUSCULAR HGB CONC 34.4 g/dl (32.0-36.5); MEAN CORPUSCULAR VOLUME 92.8 fl (80.0-96.0); MONO # 1.4 10^3/uL (0.0-0.8); MONO % 10.1 % (0.0-5.0); NEUTROPHILS % 86.2 % (36.0-66.0); PLATELET COUNT, AUTOMATED 245 10^3/uL (150-450); RED BLOOD COUNT 3.73 10^6/uL (4.30-6.10); WHITE BLOOD COUNT 13.9 10^3/uL (4.0-10.0)
[2019-06-13 19:03] LABS: INR 1.22; PROTHROMBIN TIME 15.1 SECONDS (11.8-14.0)
[2019-06-13 19:20] LABS: ALBUMIN 2.2 GM/DL (3.2-5.2); ALT/SGPT 14 U/L (12-78); BILIRUBIN,DIRECT 0.5 MG/DL (0.0-0.2); BILIRUBIN,TOTAL 0.9 MG/DL (0.2-1.0); BLOOD UREA NITROGEN 9 MG/DL (7-18); CARBON DIOXIDE LEVEL 27 MEQ/L (21-32); CHLORIDE LEVEL 95 MEQ/L (98-107); CK-MB VALUE MASS 1.2 NG/ML (<3.6); CPK CREATINE PHOSPHOKINASE 28 U/L (39-308); CREATININE FOR GFR 0.44 MG/DL (0.70-1.30); FREE T4 1.51 NG/DL (0.76-1.46); GLOMERULAR FILTRATION RATE > 60.0 (>49); GLUCOSE, FASTING 94 MG/DL (70-100); MB/CK RELATIVE INDEX 4.29 (< OR =4); POTASSIUM SERUM 4.7 MEQ/L (3.5-5.1); SODIUM LEVEL 133 MEQ/L (136-145); TOTAL PROTEIN 6.2 GM/DL (6.4-8.2); TROPONIN I 0.07 NG/ML (< 0.10)
[2019-06-13] MEDS ORDERED: METOPROLOL 5 MG/5 ML VIAL IV STA (19:26)
[2019-06-13 19:37] VITALS: BP 115/72
[2019-06-13] MEDS ORDERED: METO1TAB87 PO (21:38)
[2019-06-13 21:50] VITALS: BP 111/76
--- NOTE | 2019-06-14 07:40 | REP ---
CHEST, TWO VIEWS: Two views of the chest are performed. Comparison made with prior studies , most recent chest radiograph 07/04/[address] 03/06/2019. There is consolidated opacity in the right upper lobe, which appears increased since these prior exams. No new infiltrate is seen on the left. The heart is not significantly enlarged. There is a left central venous catheter with the tip in the superior vena cava. There appears to be a small amount of right pleural fluid or thickening. There are mild degenerative changes of the spine. IMPRESSION: Increased consolidative opacity right upper lobe. Small amount of right pleural fluid or thickening. Electronically Signed by Edy Ibrahim MD 06/15/2019 07:59 A
--- NOTE | 2019-06-16 05:43 | ECGEPIP ---
[facility] - ED Test Date: 2019-06-13 Pat Name: JAYLEEN QUINONEZ Department: Room: - Gender: Male Electrical Engineering Manager: jacy : 1960 Requested By: CAPO SALVADOR Order Number: [id number] Reading MD: Antwan Sterling Measurements Intervals Portis Rate: 143 P: NH: 0 QRS: 202 QRSD: 85 T: 32 QT: 258 QTc: 398 Interpretive Statements ATRIAL FIBRILLATION/FLUTTER WITH RAPID VENTRICULAR RESPONSE POSSIBLE ANTERIOR MYOCARDIAL INFARCTION, OF INDETERMINATE AGE RHYTHM/RATE CHANGE COMPARED TO 07/03/18 Electronically Signed on 06-16-2019 5:43:01 EDT by Antwan Sterling
--- NOTE | 2019-06-20 12:47 | ED PDOC ---
Post-Departure Follow-Up dr wilks and [facility] faxed formal reprot of cxr for fu Pranav Melo MD Jun 20, 2019 12:47
== END 2019-06-13 22:05 | disposition home or self-care (01) ==
LOC: EDBD 17:57 → M ED 17:57
DX: I48.91 Unspecified atrial fibrillation (principal); I10 Essential (primary) hypertension; Z85.118 Personal history of other malignant neoplasm of bronchus and lung; Z79.899 Other long term (current) drug therapy